=== PATIENT | female | born 1970 | race Caucasian/White ===

== ENCOUNTER 2021-03-08 11:27 | Emergency (ER) | payer OTHER | END 2021-03-08 14:16 | disposition home or self-care (01) | LOC: ER1 11:27 | DX: S00.33XA Contusion of nose, initial encounter (principal); S53.401A Unspecified sprain of right elbow, initial encounter; F17.210 Nicotine dependence, cigarettes, uncomplicated; V49.40XA Driver injured in collision with unspecified motor vehicles in traffic accident, initial encounter; Y92.410 Unspecified street and highway as the place of occurrence of the external cause | CPT/HCPCS: 70486; 73090; 99284 ==